=== PATIENT | female | born 1990 | race Caucasian/White ===

== ENCOUNTER 2022-03-15 20:07 | Inpatient (IN) | payer OTHER ==
[2022-03-15] MEDS ORDERED: OMNIPEN 2 GM*** 2 G in Sodium Chloride 100ML MINI-BAG PLUS 100 ML IV ONE (20:26)
[2022-03-15] MEDS ORDERED: Zofran 4 MG/2 ML VIAL IV PRN (20:26)
[2022-03-15] MEDS ORDERED: Nubain 10 MG/ML IV PRN (20:26)
[2022-03-15] MEDS ORDERED: STADOL 2 MG IV PRN (20:26)
[2022-03-15] MEDS ORDERED: OMNIPEN 2 GM ONE (20:40)
[2022-03-15] MEDS ORDERED: Sodium Chloride 100ML MINI-BAG PLUS 100 ML IV ONE (20:41)
[2022-03-15] MEDS ORDERED: Lactated Ringers 1,000 ML IV ONE (21:10)
[2022-03-15] MEDS ORDERED: Ephedrine Sulfate 50 MG/ML IV PRN (21:10)
[2022-03-15 21:15] LABS: Absolute Neutrophil Ct (ANC) 10.72 x10^3/uL (1.4-6.9); Basophil (Absolute #) 0.04 x10^3/uL (0-0.4); Eosinophil % 0.1 % (0.00-5.0); Eosinophil (Absolute #) 0.01 x10^3/uL (0-0.5); Hemoglobin 12.6 g/dL (12.0-16.0); Lymphocyte (Absolute #) 2.41 x10^3/uL (1.0-4.6); Lymphocytes % 17.2 % (24.0-44.0); Mean Cell Volume 92.7 fL (78-100); Mean Corpuscular Hemoglobin 31.6 pg (26-32); Mean Corpuscular Hgb Concent. 34.1 g/dL (32-36); Monocyte (Absolute #) 0.78 x10^3/uL (0.0-1.3); Monocytes % 5.6 % (0.0-12.0); Neutrophil % 76.2 % (36.0-66.0); Platelet Count 364 x10^3/uL (150-450); Red Blood Count 3.99 x10^6/uL (4.1-5.4); Red Cell Distribution Width 13.1 % (11.5-14.0); White Blood Count 14.1 x10^3/uL (4.0-10.5)
[2022-03-15] MEDS ORDERED: FENTANYL 2 MCG-BUPIV 0.125%-NS 250 ML Epidur 250 ML EPIDURAL SCH (21:15)
[2022-03-15] MEDS ORDERED: PITOCIN 30 UNITS/ LR 500 ML 500 ML IV ONE (21:19)
[2022-03-15 21:57] LABS: ABO TYPING O; Antibody Screen NEGATIVE (NEGATIVE); RH TYPING POSITIVE
[2022-03-15 22:30] LABS: Amphetamine,Urine POSITIVE (NEGATIVE); Barbiturate,Urine NEGATIVE (NEGATIVE); Benzodiazepine,Urine NEGATIVE (NEGATIVE); Cocaine,Urine NEGATIVE (NEGATIVE); Methadone,Urine NEGATIVE (NEGATIVE); Opiate,Urine NEGATIVE (NEGATIVE); PCP,Urine NEGATIVE (NEGATIVE); THC,Urine NEGATIVE (NEGATIVE)
[2022-03-16] MEDS: Lactated Ringers 1,000 ML IV SCH ×3 (01:29→20:43)
[2022-03-16] MEDS ORDERED: TUCKS TP PRN (05:35)
[2022-03-16] MEDS ORDERED: Anucort-HC SUPPOSITORY PR PRN (05:35)
[2022-03-16] MEDS ORDERED: TYLENOL EXTRA STRENGTH 500 MG PO PRN (05:35)
[2022-03-16] MEDS ORDERED: Dulcolax 10 MG SUPP PR PRN (05:35)
[2022-03-16] MEDS ORDERED: CORTISONE 1% CREAM TP PRN (05:35)
[2022-03-16] MEDS ORDERED: Dermoplast Spray TP PRN (06:00)
[2022-03-16] MEDS: MOTRIN 400 MG PO PRN ×2 (07:18→16:23)
[2022-03-16] MEDS: TYLENOL EXTRA STRENGTH 500 MG PO PRN ×2 (09:08→17:40)
[2022-03-16] MEDS: Docusate Sodium 100 MG PO SCH ×2 (09:08→21:52)
[2022-03-16] MEDS: Keppra 250 MG PO SCH ×2 (11:09→21:52)
[2022-03-16 15:30] LABS: Basophil (Absolute #) 0.05 x10^3/uL (0-0.4); Eosinophil % 0.3 % (0.00-5.0); Eosinophil (Absolute #) 0.04 x10^3/uL (0-0.5); Hematocrit 34.6 % (35-47); Hemoglobin 11.2 g/dL (12.0-16.0); Lymphocyte (Absolute #) 2.51 x10^3/uL (1.0-4.6); Mean Cell Volume 96.1 fL (78-100); Mean Corpuscular Hemoglobin 31.1 pg (26-32); Mean Corpuscular Hgb Concent. 32.4 g/dL (32-36); Mean Platelet Volume 9.8 fL (7.5-11.0); Monocyte (Absolute #) 1.07 x10^3/uL (0.0-1.3); Monocytes % 7.3 % (0.0-12.0); Neutrophil % 74.6 % (36.0-66.0); Platelet Count 282 x10^3/uL (150-450); White Blood Count 14.8 x10^3/uL (4.0-10.5)
[2022-03-17 02:08] VITALS: O2SAT 99
[2022-03-17 05:15] LABS: Basophil (Absolute #) 0.08 x10^3/uL (0-0.4); Eosinophil % 1.4 % (0.00-5.0); Eosinophil (Absolute #) 0.17 x10^3/uL (0-0.5); Hematocrit 30.6 % (35-47); Hemoglobin 9.9 g/dL (12.0-16.0); Lymphocyte (Absolute #) 3.94 x10^3/uL (1.0-4.6); Lymphocytes % 33.1 % (24.0-44.0); Mean Cell Volume 95.6 fL (78-100); Mean Corpuscular Hemoglobin 30.9 pg (26-32); Mean Corpuscular Hgb Concent. 32.4 g/dL (32-36); Mean Platelet Volume 10.2 fL (7.5-11.0); Monocyte (Absolute #) 0.86 x10^3/uL (0.0-1.3); Monocytes % 7.2 % (0.0-12.0); Platelet Count 287 x10^3/uL (150-450); Red Cell Distribution Width 13.1 % (11.5-14.0); White Blood Count 11.9 x10^3/uL (4.0-10.5)
[2022-03-17] MEDS: MOTRIN 400 MG PO PRN (06:58)
[2022-03-17] MEDS: Docusate Sodium 100 MG PO SCH ×2 (11:51→21:46)
[2022-03-17] MEDS: FERREX 150 PO SCH (11:51)
[2022-03-17] MEDS: Keppra 250 MG PO SCH ×2 (11:52→21:47)
[2022-03-17 13:51] LABS: Rubella Antibodies, IgG 1.85 index (Immune >0.99)
[2022-03-17 15:07] LABS: Hgb A 97.6 % (96.4-98.8); Hgb A2 2.4 % (1.8-3.2)
[2022-03-17 21:08] LABS: Varicella Zoster IgG 2663 index (Immune >165)
[2022-03-18] MEDS: MOTRIN 400 MG PO PRN (06:12)
[2022-03-18 06:13] LABS: HBsAg Screen Negative (Negative); HIV Screen 4th Generation wRfx Non Reactive (Non Reactive)
--- NOTE | 2022-03-18 07:58 | PCM.DS ---
Discharge Summary Date of Admission: 03/15/22 20:07 Admitting Physician: NORBERT GOLD Consults: Consults on Case 03/15/22 21:11 Notify Anesthesia Provider PRN 03/16/22 14:45 Navigation ONCE Primary Care Provider: NORBERT GOLD Allergies Allergies No Known Drug Allergies Allergy (Unverified 03/16/22 01:27) Hospital Summary - Hospital Course Hospital Course: patient arrived in spont labor, no local care, report of 36+wks EGA, delivered a viable 4#8oz female, no complications. mom + amphetamines on drug screen, cps consulted. she does not have custody of older 2 siblings but CPS ok discharge of this baby home with mom. mild lochia, no pain and doing well . - Vitals & Intake/Output Vital Signs: Vital Signs Temperature 98.2 F 03/18/22 02:00 Pulse Rate 57 L 03/18/22 02:00 Respiratory Rate 18 03/18/22 02:00 Blood Pressure 134/77 03/18/22 02:00 O2 Sat by Pulse Oximetry 99 03/17/22 20:00 Intake & Output: Intake & Output 03/15/22 03/16/22 03/17/22 03/18/22 11:59 11:59 11:59 11:59 Intake Total 1000 1500 600 Output Total 400 Balance 600 1500 600 Weight 66.678 kg - Lab Result Diagrams: 03/17/22 04:25 Lab Results-Last 24 Hrs: Lab Results-Last 24 Hours 03/15/22 03/15/22 Range/Units 21:08 21:08 Hemoglobin A 97.6 (96.4-98.8) % Hemoglobin A2 2.4 (1.8-3.2) % Hemoglobin F 0.0 (0.0-2.0) % Hemoglobin S 0.0 (0.0) % Hemoglobin Interpret Comment (.) Hep Bs Antigen Negative (Negative) HIV 1&2 Ab/P24 Ag 4thGn Non Reactive (Non Reactive) Rubella IgG Antibody 1.85 (Immune >0.99) index VZV IgG Antibody 2663 (Immune >165) index Micro Results-Entire Visit: Microbiology 03/16/22 01:00 Urine Culture - Final Urine, Catheterized NO GROWTH - Procedures and Test Procedures and Tests throughout Hospitalization: Therapy Orders & Screens 03/15/22 21:09 Smoking Cessation Education ONCE Comment: Diagnosis: iup Smoking Status: Heavy tobacco smoker Have you smoked in the past 12 months: Yes Do you dip or chew tobacco: No 03/16/22 02:30 Standby STAT Comment: Diagnosis: iup Discharge Exam General Appearance: no apparent distress, alert Neurologic Exam: alert, oriented x 3 Respiratory Exam: normal breath sounds, lungs clear, No respiratory distress Cardiovascular Exam: regular rate/rhythm, normal heart sounds Gastrointestinal/Abdomen Exam: soft, No tenderness, No mass Extremity Exam: normal inspection, normal range of motion Skin Exam: normal color, warm, dry Final Diagnosis/Problem List - Final Discharge Diagnosis/Problem (1) Vaginal delivery Current Visit: Yes Status: Acute Code(s): O80 - ENCOUNTER FOR FULL-TERM UNCOMPLICATED DELIVERY (2) Amphetamine abuse Current Visit: Yes Status: Acute Code(s): F15.10 - OTHER STIMULANT ABUSE, UNCOMPLICATED (3) Insufficient care Current Visit: Yes Status: Acute Code(s): O09.30 - SUPRVSN OF PREG W INSUFFICIENT ANTENAT CARE, UNSP TRIMESTER (4) Seizure disorder Current Visit: Yes Status: Acute Assessment & Plan: resume keppra, previous history of seizure disorder on keppra, bottle feeding so will resume after delivery Code(s): G40.909 - EPILEPSY, UNSP, NOT INTRACTABLE, WITHOUT STATUS EPILEPTICUS - Discharge Disposition: Home, Self-Care Condition: Stable Prescriptions: [place] Polysaccharides Complex [Ferrex 150] 150 mg PO DAILY #30 cap Continue Levetiracetam [Keppra] 500 mg PO BID #60 tablet Instructions: Vaginal Delivery (DC) Follow up with: NORBERT GOLD MD [Primary Care Provider] - 04/14/22 2:30 pm (PLEASE ARRIVE 15 MIN EARLY AND BRING INSURANCE AND ID CARD WITH YOU FOR REGISTRATION. )
[2022-03-18] MEDS: Docusate Sodium 100 MG PO SCH (10:56)
[2022-03-18] MEDS: Keppra 250 MG PO SCH (10:56)
[2022-03-18] MEDS: FERREX 150 PO SCH (10:56)
[2022-03-18 14:06] VITALS: BP 137/82; PULSE 58
== END 2022-03-18 12:05 | disposition home or self-care (01) | DRG 807 ==
LOC: OB 20:07 → OBSVTOIN 20:07 → OB 20:11
PROVIDERS: ADMIT Family Medicine; ATTEND Family Medicine
PROC: 10E0XZZ Delivery of Products of Conception, External Approach (ICD-10-PCS; principal; 2022-03-15)
DX: O80 Encounter for full-term uncomplicated delivery (principal); Z37.0 Single live birth; Z3A.36 36 weeks gestation of pregnancy; F15.10 Other stimulant abuse, uncomplicated; G40.909 Epilepsy, unspecified, not intractable, without status epilepticus; Z20.828 Contact with and (suspected) exposure to other viral communicable diseases
CPT/HCPCS: 36415; 80307; 83020; 84443; 85025; 86762; 86787; 86850; 86900; 86901; 87086; 87340; 87389; 94799; J0290; J2590; A9270-GY